=== PATIENT | female | born 1955 | race Caucasian/White ===

== ENCOUNTER 2019-07-21 18:45 | Emergency (ER) | payer BC ==
[2019-07-21 19:26] VITALS: RESP 18
--- NOTE | 2019-07-21 20:45 | US ---
EXAMINATION TYPE: US venous doppler duplex LE LT DATE OF EXAM: 07/21/2019 8:36 PM COMPARISON: NONE CLINICAL HISTORY: calf/knee pain. Left calf/knee pain x 3 days. No hx of DVT. Patient does not take a ny blood thinners. SIDE PERFORMED: Left TECHNIQUE: The lower extremity deep venous system is examined utilizing real time linear array sonog saranya with graded compression, doppler sonography and color-flow sonography. VESSELS IMAGED: Common Femoral Vein Deep Femoral Vein Greater Saphenous Vein * Femoral Vein Popliteal Vein Small Saphenous Vein * Proximal Calf Veins (* superficial vessels) Left Leg: EIV not seen. No evidence of DVT in veins imaged at this time from prox calf veins to EIV. Limited visibility of prox calf veins. Hypoechoic/complex area seen medial left knee: 2.6 x 1.6 x 1. 0 cm. IMPRESSION: There is a popliteal cyst. No evidence of deep vein thrombosis in the left leg.
--- NOTE | 2019-07-21 21:23 | XR ---
EXAMINATION TYPE: XR knee complete LT DATE OF EXAM: 07/21/2019 COMPARISON: NONE HISTORY: Knee pain TECHNIQUE: 3 views. FINDINGS: There is spurring on the anterior patella. There is no sign of joint effusion. I see no fracture nor dislocation. There is mild spurring of the femoral and tibial condyles. There is slight narrowing of the medial joint space. IMPRESSION: There is some hypertrophic osteoarthritis. No fracture.
--- NOTE | 2019-07-21 21:44 | ED ---
Lower Extremity Injury HPI - General Chief Complaint: Extremity Injury, Lower Stated Complaint: left knee pain Time Seen by Provider: 07/21/19 20:55 Source: patient Mode of arrival: ambulatory Limitations: no limitations - History of Present Illness Initial Comments: Patient is a 63-year-old female presenting to emergency department complaints of left knee pain for the past few days. Patient denies any falls or trauma to her left knee. She states she did drive from [place] to [place] to be with family. Patient states it hurts in the posterior aspect of her left knee and hurts to have a completely straight. She denies any previous surgeries on this knee. She denies history of blood clots. She has no other complaints at this time. Upon arrival to the ER, her vitals are stable. - Related Data Allergies Allergy/AdvReac Type Severity Reaction Status Date / Time No Known Allergies Allergy Verified 07/21/19 19:26 Review of Systems ROS Statement: Those systems with pertinent positive or pertinent negative responses have been documented in the HPI. ROS Other: All systems not noted in ROS Statement are negative. Past Medical History Past Medical History: Hyperlipidemia, Hypertension, Thyroid Disorder Additional Past Medical History / Comment(s): arthritis in spine, History of Any Multi-Drug Resistant Organisms: None Reported Past Surgical History: Cholecystectomy Additional Past Surgical History / Comment(s): cataract bilaterally, Past Psychological History: No Psychological Hx Reported Smoking Status: Former smoker Past Alcohol Use History: Occasional Past Drug Use History: None Reported General Exam - General Exam Comments Initial Comments: GENERAL: Well-appearing, well-nourished and in no acute distress. HEAD: Atraumatic, normocephalic. EYES: Pupils equal round and reactive to light, extraocular movements intact, sclera anicteric, conjunctiva are normal. ENT: TMs normal, nares patent, oropharynx clear without exudates. Moist mucous membranes. NECK: Normal range of motion, supple without lymphadenopathy or JVD. LUNGS: Breath sounds clear to auscultation bilaterally and equal. No wheezes rales or rhonchi. HEART: Regular rate and rhythm without murmurs, rubs or gallops. ABDOMEN: Soft, nontender, normoactive bowel sounds. No guarding, no rebound. No masses appreciated. EXTREMITIES: Mild pain with palpation of posterior aspect of the left knee, also distal portion of his hamstring tendons. Patient does have full range of motion of the left knee, increased pain with full extension. Neurovascular intact. No swelling or erythema. NEUROLOGICAL: Normal speech, normal gait. PSYCH: Normal mood, normal affect. SKIN: Warm, Dry, normal turgor, no rashes or lesions noted. Limitations: no limitations Course Vital Signs 07/21/19 07/21/19 19:21 22:05 Temperature 97.8 F 98.0 F Pulse Rate 71 77 Respiratory 18 18 Rate Blood Pressure 145/82 147/73 O2 Sat by Pulse 96 94 L Oximetry Medical Decision Making - Medical Decision Making Patient is a 63-year-old female presenting with left knee pain for 3 days. No injuries or falls. No history of blood clots. She did drive from [place] to [place]. Ultrasound of the left knee reveals no evidence of DVT, popliteal cyst present. X-rays of the left knee show no acute fractures dislocations. There is some osteoarthritis. I discussed these findings with the patient. She is stable for discharge at this time. She will continue with her anti- inflammatory medication and may also take Tylenol as needed. She will follow up with her PCP when she gets back home. She is in agreement this plan of care. Patient will also be given prescription for a cane per her request. Disposition Clinical Impression: Left knee pain, Unruptured cyst of left popliteal space Disposition: HOME SELF-CARE Condition: Stable Instructions (If sedation given, give patient instructions): Knee Pain (ED) Additional Instructions: Please return to the Emergency Department if symptoms worsen or any other concerns. May continue with RT prescribed anti-inflammatory. May use Tylenol as well. Follow-up with PCP. Is patient prescribed a controlled substance at d/c from ED?: No Referrals: Nonstaff,Physician [Primary Care Provider] - 1-2 days
[2019-07-21 22:05] VITALS: BP 147/73; PULSE 77; TEMP 98
== END 2019-07-21 22:05 | disposition home or self-care (01) ==
LOC: EC 18:45
DX: M71.22 Synovial cyst of popliteal space [Baker], left knee (principal); M17.12 Unilateral primary osteoarthritis, left knee; Z87.891 Personal history of nicotine dependence
CPT/HCPCS: 99284